=== PATIENT | female | born 1930 | race Caucasian/White ===

== ENCOUNTER → 2017-02-03 | Outpatient (CLI) | payer MEDICARE ==
--- NOTE | 2017-02-03 16:20 | REP ---
MRI ANKLE, WITHOUT CONTRAST: HISTORY: Tibialis posterior tendon tear. COMPARISON: None. The patient has pain times 6 months. The tendons of the tibialis anterior, extensor halluces and extensor digitorum muscles are intact and of normal appearing low signal throughout. The tendons of the tibialis posterior, flexor digitorum and flexor halluces muscles are intact and of normal appearing low signal throughout. The peroneal tendons are intact and of normal appearing low signal throughout. The Achilles tendon is intact and of normal appearing low signal throughout. The ligaments within the sinus tarsi are somewhat difficult to evaluate due to intermediate T1 signal within the sinus tarsi and slightly increased T2 signal. The normal sinus tarsi fat signal is somewhat replaced by T1 intermediate signal. There is a slight tibiotalar joint effusion. The subtalar joints appear to be within normal limits. The deltoid ligament complex is intact. The anterior and posterior inferior tibiofibular ligaments are intact. The anterior and posterior talofibular ligaments are intact. The calcaneofibular ligament is intact. Marrow signal is within normal limits. The chondral surfaces of the talar dome and tibial plafond are smooth and without abnormal chondral or subchondral signal. There is mild T1 and T2 prolongation in the deep subcutanea laterally and proximal to the ankle joint. This is nonspecific. IMPRESSION: 1. There is no evidence of a tendon tear. 2. 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 This needs to be correlated clinically. 3. There is a slight tibiotalar joint effusion. 4. Other findings as described above. Signed by Kwan Pino DO 02/03/2017 04:54 P
== END ==
LOC: M RAD 12:49
PROVIDERS: ATTEND Podiatrist
DX: M66.372 Spontaneous rupture of flexor tendons, left ankle and foot (principal)

== ENCOUNTER → 2019-03-09 | Outpatient (CLI) | payer MEDICARE ==
[~2019-03-09] MED LIST: E-Z-GAS II EFFERVESCENT PACKET (SODIUM BICARB./CITRIC ACID/SIMETHICONE) As Ordered ONE; E-Z-HD 98% w/w 340GM SUSP BTL As Ordered ONE; E-Z-PAQUE 96% w/w SUSP 176GM BTL As Ordered ONE
--- NOTE | 2019-03-10 20:10 | REP ---
Examination Requested: Esophagram Barium Swallow Reason For Exam/Comment: Dysphasia Esophagram: The procedure was performed [facility] [place], under the direct supervision of Dr. Brown. The images were reviewed with Dr. Brown. A single PA chest x-ray is submitted as a fish bait picker film. The superior mediastinal structures are midline. The heart size is within normal limits. The lungs are clear. Liquid barium and gas producing granules were given in the erect position as well as liquid barium in the prone oblique position, in order to perform a double contrast esophagram examination. Oral and pharyngeal stages of the examination were unremarkable. Esophageal transport is efficient and there is no esophagitis, stricture, or mucosal ring noted. Mild tertiary contractions were observed throughout the course of the exam. There is a small hiatal hernia noted. Gastroesophageal reflux is demonstrated to the thoracic inlet. Impression: 1. Gastroesophageal reflux noted to the level of the thoracic inlet. 2. Mild tertiary contractions. 3. Small hiatal hernia. 1.0 minutes of fluoroscopy time was utilized for this procedure. Reviewed by TIM Smith 03/10/2019 05:06 P Electronically Signed by Enrique Brown MD 03/10/2019 08:01 P
== END ==
LOC: M RAD 07:55
PROVIDERS: ATTEND Otolaryngology
DX: K21.9 Gastro-esophageal reflux disease without esophagitis (principal); K44.9 Diaphragmatic hernia without obstruction or gangrene